=== PATIENT | female | born 1990 | race Caucasian/White ===

== ENCOUNTER 2016-05-23 12:26 | Emergency (ER) | payer OTHER ==
[2016-05-23 13:01] VITALS: BP 105/60
--- NOTE | 2016-05-23 13:35 | UC ---
UC Dental HPI - HPI Summary HPI Summary: left-sided TMJ symptoms really bothersome. Wants Naproxen to help. Has appt with ENT in 2 weeks. - History of Current Complaint Chief Complaint: UCGeneralIllness Stated Complaint: JAW PAIN Time Seen by Provider: 05/23/16 13:14 Hx Obtained From: Patient Hx Last Menstrual Period: 04/23/16 Onset/Duration: Gradual Onset, Lasting Weeks - months; worse in AM; grinds teeth at night Severity: Moderate Aggravating: Chewing Alleviating: Nothing Related History: TMJ Dysfunction - Allergies/Home Medications Allergies/Adverse Reactions: Allergies Allergy/AdvReac Type Severity Reaction Status Date / Time Penicillins Allergy Unknown Unknown Verified 05/23/16 13:01 Reaction Details PMH/Surg Hx/FS Hx/Imm Hx Endocrine History Of: Denies: Diabetes, Thyroid Disease Cardiovascular History Of: Denies: Cardiac Disorders, Hypertension, Pacemaker/ICD Respiratory History Of: Denies: COPD, Asthma GI/ History Of: Denies: Ulcer - Surgical History Surgical History: Yes Surgery Procedure, Year, and Place: ,T&A - Family History Known Family History: Positive: Respiratory Disease - asthma Negative: Diabetes - Social History Occupation: Employed Full-time Lives: With Family Alcohol Use: None Substance Use Type: None Smoking Status (MU): Former Smoker Type: Cigarettes Amount Used/How Often: 1/2 PPD Length of Time of Smoking/Using Tobacco: 9 Years Have You Smoked in the Last Year: Yes When Did the Patient Quit Smoking/Using Tobacco: 11/2015 - Immunization History Most Recent Influenza Vaccination: Not the Season Most Recent Tetanus Shot: unknown Review of Systems Constitutional: Negative Skin: Negative Eyes: Negative ENT: Dental Pain - left TMJ pain Respiratory: Negative Cardiovascular: Negative Gastrointestinal: Negative Genitourinary: Negative Motor: Negative Neurovascular: Negative Musculoskeletal: Negative Neurological: Negative Psychological: Negative All Other Systems Reviewed And Are Negative: Yes Physical Exam Triage Information Reviewed: Yes Appearance: Well-Appearing, No Pain Distress, Well-Nourished Vital Signs: Initial Vital Signs Temp 98.0 F 05/23/16 12:53 Pulse 71 05/23/16 12:53 Resp 16 05/23/16 12:53 BP 105/60 05/23/16 12:53 Pulse Ox 97 05/23/16 12:53 Eye Exam: Normal ENT Exam: Other - tenderness over left TMJ area. Full ROM of jaw. Teeth appear normal. Dental Exam: Normal Neck exam: Normal Neck: Positive: Supple, Nontender Respiratory Exam: Normal Cardiovascular Exam: Normal Musculoskeletal Exam: Normal Neurological Exam: Normal Psychological Exam: Normal Skin Exam: Normal Dental Complaint Course/Dx - Differential Dx/Diagnosis Differential Diagnosis/Dx: Odontogenic Pain, Peridontic Disease, TMJ Syndrome Provider Diagnoses: TMJ syndrome Discharge - Discharge Plan Condition: Stable Disposition: HOME Prescriptions: Naproxen [Naproxen 500 MG TABS] 500 mg PO BID PRN #60 tab PRN Reason: Pain busPIRone TAB* [Buspar *] 30 mg PO BEDTIME #30 tab Patient Education Materials: Temporomandibular Disorder (ED) Referrals: Colette Ko MD [Primary Care Provider] -
== END 2016-05-23 13:45 | disposition home or self-care (01) ==
LOC: UCCORT 12:26
DX: M26.609 Unspecified temporomandibular joint disorder, unspecified side (principal); Z88.0 Allergy status to penicillin; Z87.891 Personal history of nicotine dependence
CPT/HCPCS: 99212; G0463

== ENCOUNTER 2016-05-24 17:26 | Emergency (ER) | payer OTHER ==
[2016-05-24 17:44] VITALS: BP 106/71
--- NOTE | 2016-05-24 18:37 | UC ---
Dental HPI - HPI Summary HPI Summary: has tmj by history---has left lower jaw pain now has swelling in lower jaw and lower left back dental pain - History of Current Complaint Chief Complaint: UCUpperExtremity Stated Complaint: JAW PAIN Time Seen by Provider: 05/24/16 18:27 Hx Obtained From: Patient Hx Last Menstrual Period: 05/30/15 ?: No Onset/Duration: Gradual Onset, Lasting Days, Worse Since - today with pain and swelling Severity: Moderate Pain Intensity: 7 Pain Scale Used: 0-10 Numeric Alleviating: Nothing Related History: TMJ Dysfunction, Previous Dental Care on Same Tooth, Swelling - Allergies/Home Medications Allergies/Adverse Reactions: Allergies Allergy/AdvReac Type Severity Reaction Status Date / Time Penicillins Allergy Unknown Unknown Verified 05/24/16 17:43 Reaction Details Home Medications: Home Medications HYDROcodone/ACETAMIN 5-325 MG* [[place] 5-325 TAB*] 1 tab PO SEE INSTRUCTIONS PRN 05/24/16 [History Confirmed 05/24/16] PMH/Surg Hx/FS Hx/Imm Hx Previously Healthy: Yes Endocrine History Of: Denies: Diabetes, Thyroid Disease Cardiovascular History Of: Denies: Cardiac Disorders, Hypertension, Pacemaker/ICD Respiratory History Of: Denies: COPD, Asthma GI/ History Of: Denies: Ulcer - Surgical History Surgical History: Yes Surgery Procedure, Year, and Place: ,T&A - Family History Known Family History: Positive: Respiratory Disease - asthma Negative: Diabetes - Social History Occupation: Employed Full-time Lives: With Family Alcohol Use: None Substance Use Type: None Smoking Status (MU): Former Smoker Type: Cigarettes Amount Used/How Often: 1/2 PPD Length of Time of Smoking/Using Tobacco: 9 Years Have You Smoked in the Last Year: Yes When Did the Patient Quit Smoking/Using Tobacco: 11/2015 Cessation Counseling: Patient Advised to Stop - Immunization History Most Recent Influenza Vaccination: Not the Season Most Recent Tetanus Shot: unknown Review of Systems Constitutional: Negative Skin: Negative Eyes: Negative ENT: Dental Pain - left lower Respiratory: Negative Cardiovascular: Negative Gastrointestinal: Negative Genitourinary: Negative Motor: Negative Neurovascular: Negative Musculoskeletal: Negative Neurological: Negative Psychological: Negative All Other Systems Reviewed And Are Negative: Yes Physical Exam Triage Information Reviewed: Yes Appearance: Well-Appearing, Well-Nourished, Pain Distress Vital Signs: Initial Vital Signs Temp 98.5 F 05/24/16 17:38 Pulse 63 05/24/16 17:38 Resp 16 05/24/16 17:38 BP 106/71 05/24/16 17:38 Pulse Ox 100 05/24/16 17:38 Vital Signs Reviewed: Yes Eye Exam: Normal Eyes: Positive: Conjunctiva Clear ENT Exam: Normal ENT: Positive: Normal ENT inspection, Hearing grossly normal, TMs normal. Negative: Nasal congestion, Nasal drainage, Trismus, Muffled/hoarse voice Dental: Positive: Percussion Tenderness @, Gross Decay/Caries @ - left lower molars, Cervical Lymphadenopathy - left Neck exam: Normal Neck: Positive: Supple, Tenderness @, Enlarged Nodes @ - left anterior cervical and sub mental lymph Respiratory Exam: Normal Respiratory: Positive: Chest non-tender, Lungs clear, Normal breath sounds, No respiratory distress, No accessory muscle use Cardiovascular Exam: Normal Cardiovascular: Positive: RRR, No Murmur, Pulses Normal, Brisk Capillary Refill Musculoskeletal Exam: Normal Musculoskeletal: Positive: Strength Intact, ROM Intact, No Edema Neurological Exam: Normal Neurological: Positive: Alert, Muscle Tone Normal Psychological Exam: Normal Psychological: Positive: Normal Response To Family Skin Exam: Normal Dental Complaint Course/Dx - Course Course Of Treatment: continue pervious rx pain med, add clindamycin, follow with dentist as planned - Differential Dx/Diagnosis Differential Diagnosis/Dx: Dental Abscess, Dental Caries, Odontogenic Pain Provider Diagnoses: Left lower molar dental caries , TMJ by history Discharge - Discharge Plan Condition: Stable Disposition: HOME Prescriptions: Clindamycin Cap(NF) [Cleocin 300 mg Cap(NF)] 300 mg PO Q6H #40 cap Patient Education Materials: Dental Caries (ED), Toothache (ED) Referrals: Colette Ko MD [Primary Care Provider] - Additional Instructions: Follow with Dentist in 2 weeks as planned
== END 2016-05-24 18:46 | disposition home or self-care (01) ==
LOC: UCCORT 17:26
DX: K02.9 Dental caries, unspecified (principal); M26.609 Unspecified temporomandibular joint disorder, unspecified side; Z88.0 Allergy status to penicillin; Z87.891 Personal history of nicotine dependence
CPT/HCPCS: 99212; G0463

== ENCOUNTER 2016-07-16 10:19 | Emergency (ER) | payer OTHER ==
--- NOTE | 2016-07-16 10:48 | UC ---
Respiratory Complaint HPI - HPI Summary HPI Summary: BILATERAL EAR PAIN, SINUS CONGESTION FOR TWO DAYS. MILD COUGH. CHILLS ON AN OFF. - History of Current Complaint Chief Complaint: UCGeneralIllness Stated Complaint: SINUS,EAR PAIN Time Seen by Provider: 07/16/16 10:47 Hx Last Menstrual Period: DOES NOT HAVE REG PERIODS ON DEPO - Allergies/Home Medications Allergies/Adverse Reactions: Allergies Allergy/AdvReac Type Severity Reaction Status Date / Time Penicillins Allergy Unknown Unknown Verified 07/16/16 10:27 Reaction Details Home Medications: Home Medications Ibuprofen TAB* [Advil TAB*] 400 mg PO Q6H PRN 07/16/16 [History Confirmed ] PMH/Surg Hx/FS Hx/Imm Hx Previously Healthy: Yes Endocrine History Of: Denies: Diabetes, Thyroid Disease Cardiovascular History Of: Denies: Cardiac Disorders, Hypertension, Pacemaker/ICD Respiratory History Of: Denies: COPD, Asthma GI/ History Of: Denies: Ulcer - Surgical History Surgical History: Yes Surgery Procedure, Year, and Place: ,T&A - Family History Known Family History: Positive: Respiratory Disease - asthma Negative: Diabetes - Social History Alcohol Use: None Substance Use Type: None Smoking Status (MU): Former Smoker Type: Cigarettes Amount Used/How Often: 1/2 PPD Length of Time of Smoking/Using Tobacco: 9 Years Have You Smoked in the Last Year: Yes When Did the Patient Quit Smoking/Using Tobacco: 11/2015 - Immunization History Most Recent Influenza Vaccination: NO Most Recent Tetanus Shot: unknown Review of Systems Constitutional: Negative Skin: Negative Eyes: Negative ENT: Dental Pain - right lower molar frx., Ear Ache, Other - b/l sinus pain Respiratory: Negative Cardiovascular: Negative Gastrointestinal: Negative Genitourinary: Negative Motor: Negative Neurovascular: Negative Musculoskeletal: Negative Neurological: Negative Psychological: Negative All Other Systems Reviewed And Are Negative: Yes Physical Exam Triage Information Reviewed: Yes Appearance: Well-Nourished, Ill-Appearing Vital Signs: Initial Vital Signs Temp 98.2 F 07/16/16 10:29 Pulse 63 07/16/16 10:29 Resp 16 07/16/16 10:29 BP 120/76 07/16/16 10:29 Pulse Ox 100 07/16/16 10:29 Vital Signs Reviewed: Yes Eye Exam: Normal ENT: Positive: Hearing grossly normal, Pharyngeal erythema, Nasal drainage, TMs normal, Other: - external ears are not tender. TMs are completely nml b/l. rt > left maxillary tenderness. Negative: TM bulging, TM dull, TM red, Tonsillar swelling, Tonsillar exudate, Muffled/hoarse voice Dental: Positive: Dental Fracture @ - rt lower molar, no abscess or erythema. Respiratory Exam: Normal Respiratory: Positive: Lungs clear, Normal breath sounds, No respiratory distress, No accessory muscle use Cardiovascular Exam: Normal Cardiovascular: Positive: RRR, No Murmur, Pulses Normal, Brisk Capillary Refill Abdomen Description: Positive: Nontender, Soft Musculoskeletal Exam: Normal Neurological Exam: Normal Psychological Exam: Normal Skin Exam: Normal UC Diagnostic Evaluation - Laboratory O2 Sat by Pulse Oximetry: 100 Respiratory Course/Dx - Course Course Of Treatment: no ear infection. nasal steroid spray. - Differential Dx/Diagnosis Differential Diagnosis/HQI/PQRI: Sinusitis, Other - sinusitis Provider Diagnoses: sinusitis, eustachean tube dysfunction. right lower molar fracture Discharge - Discharge Plan Condition: Stable Disposition: HOME Prescriptions: Cefdinir [Cefdinir 300 MG CAP] 300 mg PO BID #20 cap Patient Education Materials: Sinusitis (ED) Referrals: Colette Ko MD [Primary Care Provider] - Additional Instructions: Take a probiotic every day while you are on the antibiotic. fluids and rest. tylenol max daily dose is 4 gms and ibuprofen is 2400mgs in 24 hrs. Make sure to get in with the dentist for the tooth fracture.
[2016-07-16 11:18] VITALS: BP 124/83
== END 2016-07-16 11:18 | disposition home or self-care (01) ==
LOC: UCCORT 10:19
DX: J32.9 Chronic sinusitis, unspecified (principal); H69.93 Unspecified Eustachian tube disorder, bilateral; K03.81 Cracked tooth; Z88.0 Allergy status to penicillin; Z87.891 Personal history of nicotine dependence
CPT/HCPCS: 99212; G0463

== ENCOUNTER 2016-10-21 15:35 | Emergency (ER) | payer OTHER ==
[2016-10-21 15:50] VITALS: BP 108/72
--- NOTE | 2016-10-21 16:22 | UC ---
Hand/Wrist HPI - HPI Summary HPI Summary: pt reports breaking up sticks for fire wood yesterday and hyperextending or abducting left thumb, with suden onset of pain, selling and decrease in ROM to left thumb. Pt c/o today of swelling, pain that radiates to left elbows and minimal ROM . - History Of Current Complaint Chief Complaint: UCUpperExtremity Stated Complaint: LEFT THUMB INJURY Time Seen by Provider: 10/21/16 16:04 Hx Obtained From: Patient Hx Last Menstrual Period: 10/14/16 ?: No Onset/Duration: Sudden Onset, Lasting Hours - 24 Severity Initially: Moderate Severity Currently: Moderate Character Of Pain: Dull, Aching Aggravating Factor(s): Movement Alleviating: Rest Associated Signs And Symptoms: Positive: Swelling, Bruising, Other - decreased ROM Related History: Dominant Hand Left - Risk Factors Compartment Syndrome Risk Factors: Pain - Allergies/Home Medications Allergies/Adverse Reactions: Allergies Allergy/AdvReac Type Severity Reaction Status Date / Time Penicillins Allergy Unknown Unknown Verified 10/21/16 15:45 Reaction Details PMH/Surg Hx/FS Hx/Imm Hx Previously Healthy: Yes - Surgical History Surgical History: Yes Surgery Procedure, Year, and Place: ,T&A - Family History Known Family History: Positive: Respiratory Disease - asthma Negative: Diabetes - Social History Alcohol Use: None Substance Use Type: None Smoking Status (MU): Heavy Every Day Tobacco Smoker Type: Cigarettes Amount Used/How Often: 1/2 PPD Length of Time of Smoking/Using Tobacco: 9 Years Have You Smoked in the Last Year: Yes When Did the Patient Quit Smoking/Using Tobacco: 11/2015 - Immunization History Most Recent Influenza Vaccination: Not the Season Most Recent Tetanus Shot: unknown Review of Systems Constitutional: Negative Skin: Bruising - left thumb Eyes: Negative ENT: Negative Respiratory: Negative Cardiovascular: Negative Gastrointestinal: Negative Genitourinary: Negative Motor: Decreased ROM - left htumb, Weakness - left thumb Neurovascular: Negative Musculoskeletal: Arthralgia, Decreased ROM - left thumb, Edema, Myalgia Neurological: Weakness - left thumb Psychological: Negative All Other Systems Reviewed And Are Negative: Yes Physical Exam Triage Information Reviewed: Yes Appearance: Well-Appearing Vital Signs: Initial Vital Signs Temp 99.3 F 10/21/16 15:46 Pulse 83 10/21/16 15:46 Resp 16 10/21/16 15:46 BP 108/72 10/21/16 15:46 Pulse Ox 99 10/21/16 15:46 Eye Exam: Normal ENT Exam: Normal Neck exam: Normal Respiratory Exam: Normal Respiratory: Positive: No respiratory distress Musculoskeletal Exam: Other Musculoskeletal: Positive: ROM Limited @ - left thumb, Edema @ - left thumb, Other: - bruising left thumb, pain left thumb and lateral left wrist Neurological Exam: Other - weakness Psychological Exam: Normal Skin Exam: Other - bruising base of thumb Hand/Wrist Course/Dx - Differential Dx/Diagnosis Differential Diagnosis/HQI/PQRI: Contusion, Dislocation, Fracture Provider Diagnoses: fracture. IMPRESSION: Possible nondisplaced fracture involving the palmar proximal corner of the. left thumb distal phalanx. Discharge - Discharge Plan Condition: Stable Disposition: HOME Patient Education Materials: Thumb Fracture (ED) Forms: *Work Release Referrals: Diann Oliver MD [Medical Doctor] - Colette Ko MD [Primary Care Provider] - Additional Instructions: X-Ray: IMPRESSION: Possible nondisplaced fracture involving the palmar proximal corner of the left thumb distal phalanx.
--- NOTE | 2016-10-21 16:37 | RAD ---
INDICATION: Hyperextension injury COMPARISON: None TECHNIQUE: 3 views of the left thumb were obtained. FINDINGS: On the lateral view of the thumb there is a faint cortical lucency at the palmar proximal corner of the left thumb distal phalanx. The remaining visualized bones are intact and appropriately aligned. IMPRESSION: Possible nondisplaced fracture involving the palmar proximal corner of the left thumb distal phalanx. If the patient's symptoms persist, follow-up imaging is recommended.
== END 2016-10-21 16:50 | disposition home or self-care (01) ==
LOC: UCCORT 15:35
DX: Z72.0 Tobacco use (principal); S69.92XA Unspecified injury of left wrist, hand and finger(s), initial encounter; X50.0XXA Overexertion from strenuous movement or load, initial encounter; Y93.89 Activity, other specified; Y92.9 Unspecified place or not applicable; Y99.9 Unspecified external cause status
CPT/HCPCS: 99212; G0463

== ENCOUNTER 2017-02-27 18:39 | Emergency (ER) | payer OTHER ==
[2017-02-27 18:57] VITALS: BP 124/80
--- NOTE | 2017-02-27 19:45 | UC ---
Skin Complaint HPI - HPI Summary HPI Summary: Left medial upper arm patch of skin that is pink, swollen and burning sensation. She had a similar skin issue on the right hip about 2weeks ago and she was diagnosed with possible lyme versus cellulites. She is currently on doxycycline. No other members of the household have the same symptoms. - History of Current Complaint Chief Complaint: UCSkin Time Seen by Provider: 02/27/17 19:26 Stated Complaint: LEFT ARM SWOLLEN Hx Obtained From: Patient Hx Last Menstrual Period: 02/07/17, on depo Onset/Duration: Gradual Onset, Lasting Hours Skin Exposure Onset/Duration: Hours Ago Timing: Constant Onset Severity: Moderate Current Severity: Moderate Location: Discrete - Left arm. Character: Swelling, Redness, Raised, Painful - burning. Aggravating Factor(s): Touch Alleviating Factor(s): Nothing Associated Signs & Symptoms: Positive: Tenderness. Negative: Fever, Chills - Allergy/Home Medications Allergies/Adverse Reactions: Allergies Allergy/AdvReac Type Severity Reaction Status Date / Time Penicillins Allergy Unknown Unknown Verified 02/27/17 18:57 Reaction Details Home Medications: Home Medications DOXYcycline CAP(*) [DOXYcycline 100MG CAP(*)] 100 mg PO BID 02/27/17 [History Confirmed 02/27/17] Review of Systems Skin: Other - patch of skin swelling. All Other Systems Reviewed And Are Negative: Yes PMH/Surg Hx/FS Hx/Imm Hx Previously Healthy: Yes - Surgical History Surgical History: Yes Surgery Procedure, Year, and Place: ,T&A - Family History Known Family History: Positive: Respiratory Disease - asthma Negative: Diabetes - Social History Alcohol Use: None Substance Use Type: None Smoking Status (MU): Heavy Every Day Tobacco Smoker Type: Cigarettes Amount Used/How Often: 1/2 PPD Length of Time of Smoking/Using Tobacco: 9 Years Have You Smoked in the Last Year: Yes When Did the Patient Quit Smoking/Using Tobacco: 11/2015 - Immunization History Most Recent Influenza Vaccination: Not the Season Most Recent Tetanus Shot: unknown Physical Exam Triage Information Reviewed: Yes Appearance: Well-Appearing, No Pain Distress, Well-Nourished Vital Signs: Initial Vital Signs Temp 98 F 02/27/17 18:52 Pulse 94 02/27/17 18:52 Resp 14 02/27/17 18:52 BP 124/80 02/27/17 18:52 Pulse Ox 98 02/27/17 18:52 Vital Signs Reviewed: Yes Eyes: Positive: Conjunctiva Clear ENT: Positive: Normal ENT inspection Neck exam: Normal Neck: Positive: Supple, Nontender, No Lymphadenopathy Respiratory Exam: Normal Respiratory: Positive: No respiratory distress, No accessory muscle use. Negative: Respiratory distress Cardiovascular: Positive: Brisk Capillary Refill Abdominal Exam: Normal Abdomen Description: Negative: Distended Musculoskeletal: Positive: Strength Intact, ROM Intact Neurological: Positive: Alert, Muscle Tone Normal. Negative: Fatigued Skin Exam: Other - discrete patch of pink warm skin medial upper arm without streaking. there is mild tenderness per the patient but no wincing or guarding. Course/Dx - Diagnoses Provider Diagnoses: insect bite Discharge - Discharge Plan Condition: Good Disposition: HOME Patient Education Materials: Insect Bite or Sting (ED) Referrals: Colette Ko MD [Primary Care Provider] - If Needed
== END 2017-02-27 19:43 | disposition home or self-care (01) ==
LOC: UCCORT 18:39
DX: S70.261A Insect bite (nonvenomous), right hip, initial encounter (principal); W57.XXXA Bitten or stung by nonvenomous insect and other nonvenomous arthropods, initial encounter; Y92.9 Unspecified place or not applicable; F17.210 Nicotine dependence, cigarettes, uncomplicated
CPT/HCPCS: 99211; G0463

== ENCOUNTER 2017-04-14 13:27 | Emergency (ER) | payer OTHER ==
[2017-04-14 13:49] VITALS: BP 115/81
--- NOTE | 2017-04-14 14:50 | UC ---
UC General HPI - HPI Summary HPI Summary: THREE DAYS OF NAUSEA & VOMITING AFTER EATING. NO ABDOMINAL PAIN. NO BACK PAIN. NO FEVER. NO COUGH CONGESTION, OR SORE THROAT. " I THINK I HAVE A STOMACH BUG.' NO CONSTIPATION OR DIARRHEA. - History of Current Complaint Chief Complaint: UCGI Stated Complaint: VOMITING Time Seen by Provider: 04/14/17 13:33 Hx Obtained From: Patient Hx Last Menstrual Period: unknown, depo shot Onset/Duration: Gradual Onset, Lasting Days, Still Present Onset Severity: Mild Current Severity: Mild Pain Intensity: 0 Associated Signs & Symptoms: Positive: Nausea, Vomiting. Negative: Abdominal Pain, Back Pain, Cough, Chest Pain, Dizziness, Diarrhea, Decreased Oral Intake, Edema, Fever, Headache, Hematemesis, Syncope - Allergy/Home Medications Allergies/Adverse Reactions: Allergies Allergy/AdvReac Type Severity Reaction Status Date / Time Penicillins Allergy Unknown Unknown Verified 04/14/17 13:48 Reaction Details PMH/Surg Hx/FS Hx/Imm Hx Previously Healthy: Yes - Surgical History Surgical History: Yes Surgery Procedure, Year, and Place: ,T&A - Family History Known Family History: Positive: Respiratory Disease - asthma Negative: Diabetes - Social History Occupation: Employed Full-time Lives: With Family Alcohol Use: None Substance Use Type: None Smoking Status (MU): Former Smoker Type: Cigarettes Amount Used/How Often: 1/2 PPD Length of Time of Smoking/Using Tobacco: 9 Years Have You Smoked in the Last Year: Yes When Did the Patient Quit Smoking/Using Tobacco: 11/2015 - Immunization History Most Recent Influenza Vaccination: Not the Season Most Recent Tetanus Shot: unknown Review of Systems Constitutional: Negative Skin: Negative Eyes: Negative ENT: Negative Respiratory: Negative Cardiovascular: Negative Gastrointestinal: Vomiting, Nausea Genitourinary: Negative Motor: Negative Neurovascular: Negative Musculoskeletal: Negative Neurological: Negative Psychological: Negative Is Patient Immunocompromised?: No All Other Systems Reviewed And Are Negative: Yes Physical Exam Triage Information Reviewed: Yes Appearance: Well-Appearing, No Pain Distress, Well-Nourished Vital Signs: Initial Vital Signs Temp 97.9 F 04/14/17 13:46 Pulse 96 04/14/17 13:46 Resp 16 04/14/17 13:46 BP 115/81 04/14/17 13:46 Pulse Ox 100 04/14/17 13:46 Vital Signs Reviewed: Yes Eye Exam: Normal Eyes: Positive: Conjunctiva Clear ENT Exam: Normal ENT: Positive: Normal ENT inspection, Hearing grossly normal, Pharynx normal Dental Exam: Normal Neck exam: Normal Neck: Positive: Supple, Nontender, No Lymphadenopathy Respiratory Exam: Normal Respiratory: Positive: Chest non-tender, Lungs clear, Normal breath sounds, No respiratory distress Cardiovascular Exam: Normal Cardiovascular: Positive: RRR, No Murmur, Pulses Normal Abdominal Exam: Normal Abdomen Description: Positive: Nontender, No Organomegaly, Soft Musculoskeletal Exam: Normal Neurological Exam: Normal Psychological Exam: Normal Skin Exam: Normal Course/Dx - Differential Dx - Multi-Symptom Differential Diagnoses: Metabolic Abnormality Provider Diagnoses: GASTRITIS Discharge - Discharge Plan Condition: Stable Disposition: HOME Prescriptions: Ondansetron ODT TAB* [Zofran 4 MG Odt TAB*] 4 mg PO Q8H PRN #12 tab.odt PRN Reason: Vomiting Patient Education Materials: Acute Nausea and Vomiting (ED) Forms: *Work Release Referrals: Colette Ko MD [Primary Care Provider] -
== END 2017-04-14 14:14 | disposition home or self-care (01) ==
LOC: UCCORT 13:27
DX: K29.70 Gastritis, unspecified, without bleeding (principal); Z32.02 Encounter for pregnancy test, result negative; Z88.0 Allergy status to penicillin; Z87.891 Personal history of nicotine dependence
CPT/HCPCS: 81003; 84702; 99212; G0463

== ENCOUNTER 2018-03-02 14:28 | Emergency (ER) | payer OTHER ==
[2018-03-02 15:03] VITALS: BP 128/82
--- NOTE | 2018-03-02 15:20 | UC ---
Throat Pain/Nasal Tay HPI - HPI Summary HPI Summary: C/O plugged ear yesterday. Cough with post nasal drip. C/O sinus pain. Feels feverish - History of Current Complaint Chief Complaint: UCGeneralIllness Stated Complaint: SINUS COMPLAINT Time Seen by Provider: 03/02/18 15:13 Hx Last Menstrual Period: 02/10/18 ?: No Onset/Duration: Sudden Onset, Lasting Days - 1, Worse Since - today Severity: Moderate Pain Intensity: 7 Cough: Nonproductive Associated Signs & Symptoms: Positive: Hoarseness, Sinus Discomfort, Nasal Discharge, Fever - Allergies/Home Medications Allergies/Adverse Reactions: Allergies Allergy/AdvReac Type Severity Reaction Status Date / Time Penicillins Allergy Hives Verified 03/02/18 15:01 PMH/Surg Hx/FS Hx/Imm Hx Previously Healthy: Yes - Surgical History Surgical History: Yes Surgery Procedure, Year, and Place: ,T&A - Family History Known Family History: Positive: Respiratory Disease - asthma Negative: Cardiac Disease, Hypertension, Diabetes - Social History Occupation: Employed Full-time Lives: With Family Alcohol Use: None Substance Use Type: None Smoking Status (MU): Former Smoker Type: Cigarettes Amount Used/How Often: 1/2 PPD Length of Time of Smoking/Using Tobacco: 9 Years Have You Smoked in the Last Year: Yes When Did the Patient Quit Smoking/Using Tobacco: 11/2015 - Immunization History Most Recent Influenza Vaccination: Not the Season Most Recent Tetanus Shot: unknown Review of Systems Constitutional: Fever ENT: Sore Throat, Nasal Discharge, Sinus Pain/Tenderness Respiratory: Cough Is Patient Immunocompromised?: No All Other Systems Reviewed And Are Negative: Yes Physical Exam Triage Information Reviewed: Yes Appearance: No Pain Distress, Well-Nourished, Ill-Appearing Vital Signs: Initial Vital Signs Temp 97.9 F 03/02/18 14:58 Pulse 76 03/02/18 14:58 Resp 16 03/02/18 14:58 BP 128/82 03/02/18 14:58 Pulse Ox 99 03/02/18 14:58 Vital Signs Reviewed: Yes Eyes: Positive: Conjunctiva Clear ENT: Positive: Pharynx normal, Nasal congestion, TMs normal - but retracted. Neck exam: Normal Respiratory Exam: Normal Cardiovascular Exam: Normal Musculoskeletal Exam: Normal Neurological Exam: Normal Psychological Exam: Normal Skin Exam: Normal Throat Pain/Nasal Course/Dx - Differential Dx/Diagnosis Differential Diagnosis/HQI/PQRI: Otitis Media, Pharyngitis, Sinusitis, URI Provider Diagnoses: Acute URI. Acute sinusitis Discharge - Sign-Out/Discharge Documenting (check all that apply): Patient Departure All imaging exams completed and their final reports reviewed: No Studies - Discharge Plan Condition: Stable Disposition: HOME Prescriptions: DOXYcycline CAP(*) [DOXYcycline 100MG CAP(*)] 100 mg PO BID #20 cap Patient Education Materials: Sinusitis (ED), Doxycycline (By mouth), Upper Respiratory Infection (ED) Referrals: Jaqueline Campbell [Primary Care Provider] - Additional Instructions: NASAL SPRAYS AND DROPS: Afrin in the PUMP/ MIST bottle (Get generic 12 hours nasal decongestant spray). Tilt your head down and look at the floor while doing a strong sniff with the spray. Decongestant nasal sprays and drops often give dramatic relief from congestion. They are often recommended for patients with sinus infection to assist with sinus drainage. Persons with high blood pressure should consult the doctor before using these nasal sprays. Afrin and Parth-Synephrine are common vuyx-kuh-jhjmich preparations. They should not be used for more than five days, as "rebound" congestion can occur - - the congestion flares as the drug wears off. A way of dealing with this rebound congestion problem is to medicate only one nostril each time, allowing the other nostril to recover from the medicine' s effects. When you no longer need the drug during the day, spray only one nostril each night. This helps you sleep well without severe rebound congestion. Call the doctor if you develop severe headache, palpitations, or chest pain. NEILMED SINUS RINSE: CHECK OUT AT [facility] Might be helpful if you continue to have sinus congestion in a few days. Saline nasal wash helps with mucous, allergies and congestion. It can be used up to twice a day or only as needed. Use lukewarm tap water. It does not have to be sterilized or distilled water. Do 1/3 on each side and snort out of both nostrils. Repeat the process with 1/6 of the bottle on each side with snorting in between to finish the solution in the bottle - Billing Disposition and Condition Condition: STABLE Disposition: Home
== END 2018-03-02 15:34 | disposition home or self-care (01) ==
LOC: UCCORT 14:28
DX: J06.9 Acute upper respiratory infection, unspecified (principal); J32.9 Chronic sinusitis, unspecified; Z88.0 Allergy status to penicillin; Z87.891 Personal history of nicotine dependence
CPT/HCPCS: 99212; G0463

== ENCOUNTER 2018-04-28 14:24 | Emergency (ER) | payer OTHER ==
[2018-04-28 15:48] VITALS: BP 122/80
--- NOTE | 2018-04-28 16:17 | UC ---
Dental HPI - HPI Summary HPI Summary: PATIENT WAS AT THE DENTIST 5 DAYS AGO WHERE SHE HAD A CLEANING AND HAD A FILLING PLACED TO HER RIGHT UPPER SECOND PREMOLAR. SINCE THEN SHE HAS HAD DISCOMFORT AT THAT TOOTH WHICH SHE FEELS IS GETTING WORSE. NO FEVER, NAUSEA/ VOMITING. ALSO REPORTS SHE HAS BEEN FEELING OVERWHELMINGLY ANXIOUS RECENTLY AND HAS BEEN UNABLE TO "MAKE IT GO AWAY". IN THE PAST HAS TAKEN LORAZEPAM NEEDED TO HELP WITH THESE SX. HAS BEEN DOING WELL PAST FEW YEARS BUT STATES THAT SHE HAS A LOT OF STRESS IN HER LIFE RIGHT NOW. NO SI/HI. - History of Current Complaint Chief Complaint: UCDentalProblem Stated Complaint: ORAL COMPLAINT Time Seen by Provider: 04/28/18 15:43 Hx Obtained From: Patient Hx Last Menstrual Period: 02/10/18 Onset/Duration: Gradual Onset, Lasting Days, Still Present Severity: Moderate Pain Intensity: 5 Pain Scale Used: 0-10 Numeric Aggravating Factor(s): Heat, Cold, Chewing Alleviating Factor(s): OTC Meds - ibuprofen - Allergies/Home Medications Allergies/Adverse Reactions: Allergies Allergy/AdvReac Type Severity Reaction Status Date / Time Penicillins Allergy Hives Verified 04/28/18 15:44 ALL CILLINS Allergy Hives Uncoded 04/28/18 15:44 Home Medications: Home Medications Ibuprofen TAB* [Advil TAB*] 600 mg PO Q6H PRN 04/28/18 [History Confirmed ] PMH/Surg Hx/FS Hx/Imm Hx Psychological History: Anxiety - Surgical History Surgical History: Yes Surgery Procedure, Year, and Place: ,T&A - Family History Known Family History: Positive: Respiratory Disease - asthma Negative: Cardiac Disease, Hypertension, Diabetes - Social History Alcohol Use: Rare Substance Use Type: None Smoking Status (MU): Former Smoker Type: Cigarettes Amount Used/How Often: 1/2 PPD Length of Time of Smoking/Using Tobacco: 9 Years Have You Smoked in the Last Year: Yes When Did the Patient Quit Smoking/Using Tobacco: 11/2015 - Immunization History Most Recent Influenza Vaccination: Not the Season Most Recent Tetanus Shot: unknown Review of Systems All Other Systems Reviewed And Are Negative: Yes Constitutional: Positive: Negative ENT: Positive: Dental Pain Respiratory: Positive: Negative Cardiovascular: Positive: Negative Gastrointestinal: Positive: Negative Psychological: Positive: Anxious Physical Exam Triage Information Reviewed: Yes Appearance: Well-Nourished, Pain Distress - mild, Other: - pt anxious, tearful Vital Signs: Initial Vital Signs Temp 98.6 F 04/28/18 15:44 Pulse 69 04/28/18 15:44 Resp 15 04/28/18 15:44 BP 122/80 04/28/18 15:44 Pulse Ox 100 04/28/18 15:44 Vital Signs Reviewed: Yes Eyes: Positive: Conjunctiva Clear ENT: Positive: Hearing grossly normal, Pharynx normal, TMs normal Dental: Positive: Percussion Tenderness @ - RIGHT UPPER 2ND PREMOLAR - METAL FILLING IN PLACE Neck: Positive: Supple, Nontender, No Lymphadenopathy Respiratory: Positive: No respiratory distress, No accessory muscle use Cardiovascular: Positive: Pulses Normal Abdomen Description: Positive: Soft Musculoskeletal: Positive: No Edema Neurological: Positive: Alert Psychological: Positive: Age Appropriate Behavior, Other: - PT IS TEARFUL AND ANXIOUS Skin: Negative: Rashes Dental Complaint Course/Dx - Differential Dx/Diagnosis Provider Diagnosis: Pain, dental, Anxiety Discharge - Sign-Out/Discharge Documenting (check all that apply): Patient Departure All imaging exams completed and their final reports reviewed: No Studies - Discharge Plan Condition: Stable Disposition: HOME Prescriptions: Chlorhexidine MW 0.12% 473ML* [Peridex Mouth Wash 0.12%*] 15 ml SWISH SPIT BID # 1 bottle LORazepam [Lorazepam] 1 - 2 tab PO BID PRN #6 tablet MDD 2 PRN Reason: Anxiety Patient Education Materials: Toothache (ED), Anxiety (ED) Referrals: Jaqueline Campbell [Primary Care Provider] - If Needed Additional Instructions: NO SIGN OF TOOTH INFECTION ON EXAM TODAY. YOUR NERVE ROOT AND/OR YOUR GUMS MAY HAVE BEEN IRRITATED DURING YOUR CLEANING AND FILLING PLACEMENT ON SATURDAY. USE THE PERIDEX MOUTH RINSE TWICE DAILY. RINSE YOUR MOUTH OUT WITH WATER AFTER EATING OR DRINKING ANYTHING. FOLLOW-UP WITH YOUR DENTIST SOON THEY REOPEN AFTER THE HOLIDAYS. IBUPROFEN NEEDED FOR DISCOMFORT. WILL GIVE YOU A FEW ATIVAN FOR YOU TO USE TO HELP BREAK YOUR ANXIETY CYCLE SINCE YOU TOLERATED THIS MEDICINE WELL IN THE PAST. PLEASE NOTE THAT THIS IS NOT A GOOD CHOICE FOR CHRONIC MANAGEMENT OF YOUR ANXIETY. FOLLOW-UP WITH [facility] TO FURTHER DISCUSS TREATMENT OPTIONS FOR YOUR ANXIETY. - Billing Disposition and Condition Condition: STABLE Disposition: Home
== END 2018-04-28 16:18 | disposition home or self-care (01) ==
LOC: UCCORT 14:24
DX: K08.89 Other specified disorders of teeth and supporting structures (principal); F41.9 Anxiety disorder, unspecified; Z88.0 Allergy status to penicillin; Z87.891 Personal history of nicotine dependence
CPT/HCPCS: 99212; G0463

== ENCOUNTER 2018-05-24 11:09 | Emergency (ER) | payer OTHER ==
[2018-05-24 12:00] VITALS: BP 125/78
--- NOTE | 2018-05-24 12:42 | UC ---
Neck Pain HPI - HPI Summary HPI Summary: Pt c/o of left side neck pain and stiffness. Pt states that she had a fever yesterday of 101, felt better, then went to bed at usual time at night and woke thismroning with left side neck pain and stiffness. Denies fever this morning. - History of Current Complaint Chief Complaint: UCBackPain Stated Complaint: NECK PAIN/STIFF Time Seen by Provider: 05/24/18 12:29 Hx Obtained From: Patient Hx Last Menstrual Period: 05/04/18 ?: No Onset/Duration Of Injury/Symptoms: Hours Mechanism Of Injury: No Known Trauma Timing: Constant Onset/Duration: Sudden Onset, Lasting Hours Severity: Severe Pain Intensity: 9 Location: Discrete At: - left side of neck Character: Aching, Stiff, Spasmotic, Burning Aggravating Factors: Movement Alleviating Factors: Nothing Associated Signs & Symptoms: Positive: Negative - Risk Factors Meningitis Risk Factors: Negative - Allergies/Home Medications Allergies/Adverse Reactions: Allergies Allergy/AdvReac Type Severity Reaction Status Date / Time Penicillins Allergy Hives Verified 05/24/18 11:57 ALL CILLINS Allergy Hives Uncoded 05/24/18 11:57 PMH/Surg Hx/FS Hx/Imm Hx - Additional Past Medical History Additional PMH: Pt had spinal meningitis as child. Previously Healthy: Yes - Surgical History Surgical History: Yes Surgery Procedure, Year, and Place: ,T&A - Family History Known Family History: Positive: Respiratory Disease - asthma Negative: Cardiac Disease, Hypertension, Diabetes - Social History Occupation: Employed Full-time Lives: With Family Alcohol Use: Rare Substance Use Type: None Smoking Status (MU): Former Smoker Type: Cigarettes Amount Used/How Often: 1/2 PPD Length of Time of Smoking/Using Tobacco: 9 Years Have You Smoked in the Last Year: No When Did the Patient Quit Smoking/Using Tobacco: 11/2015 - Immunization History Most Recent Influenza Vaccination: Not the Season Most Recent Tetanus Shot: unknown Review Of Systems Constitutional: Positive: Fever Skin: Positive: Negative Eyes: Positive: Negative ENT: Positive: Negative Respiratory: Positive: Negative Cardiovascular: Positive: Negative Gastrointestinal: Positive: Negative Genitourinary: Positive: Negative Musculoskeletal: Positive: Myalgia Neurological: Positive: Headache Psychological: Positive: Negative All Other Systems Reviewed And Are Negative: No Physical Exam Triage Information Reviewed: Yes Appearance: Pain Distress Vital Signs: Initial Vital Signs Temp 98.1 F 05/24/18 11:56 Pulse 66 05/24/18 11:56 Resp 17 05/24/18 11:56 BP 125/78 05/24/18 11:56 Pulse Ox 100 05/24/18 11:56 Vital Signs Reviewed: Yes Eye Exam: Normal ENT Exam: Normal ENT: Positive: Hearing grossly normal Dental Exam: Normal Neck: Positive: Other: - along superior border of trapezius left side stiffness, Respiratory Exam: Normal Cardiovascular Exam: Normal Musculoskeletal: Positive: ROM Limited @ - neck, left side stiffness Neurological Exam: Normal Psychological Exam: Normal Skin Exam: Normal Neck Pain Course/Dx - Differential Dx/Diagnosis Differential Dx/HQI/PQRI: Meningitis, Sprain, Strain, Torticollis Provider Diagnosis: Torticollis, acute Discharge - Sign-Out/Discharge Documenting (check all that apply): Patient Departure All imaging exams completed and their final reports reviewed: No Studies - Discharge Plan Condition: Stable Disposition: HOME Prescriptions: Cyclobenzaprine TAB* [Flexeril 10 MG TAB*] 10 mg PO Q8H PRN #15 tab PRN Reason: Pain predniSONE TAB* [Deltasone 20 MG TAB*] 20 mg PO DAILY #4 tab Patient Education Materials: Spasmodic Torticollis (ED) Referrals: Jaqueline Campbell [Primary Care Provider] - If Needed - Billing Disposition and Condition Condition: STABLE Disposition: Home
== END 2018-05-24 12:53 | disposition home or self-care (01) ==
LOC: UCCORT 11:09
DX: M43.6 Torticollis (principal); Z88.0 Allergy status to penicillin
CPT/HCPCS: 99212; G0463

== ENCOUNTER 2019-02-05 08:09 | Emergency (ER) | payer OTHER ==
[2019-02-05 08:48] VITALS: BP 119/87
--- NOTE | 2019-02-05 09:24 | UC ---
Skin Complaint HPI - HPI Summary HPI Summary: painful sore on her left lower lip x 1 day woke up with the sore. no hx of cold sores, ? bug bite no fever , no chill - History of Current Complaint Chief Complaint: UCSkin Time Seen by Provider: 02/05/19 08:50 Stated Complaint: LIP-SKIN Hx Obtained From: Patient Hx Last Menstrual Period: none ?: No Onset/Duration: Gradual Onset, Lasting Days - 1, Still Present Timing: Constant Onset Severity: Moderate Current Severity: Moderate Pain Intensity: 7 Pain Scale Used: 0-10 Numeric Location: Discrete - left lower lip Character: Swelling, Pain, Redness, Raised, Painful Aggravating Factor(s): Touch Alleviating Factor(s): Nothing Associated Signs & Symptoms: Positive: Tenderness. Negative: Fever, Chills - Allergy/Home Medications Allergies/Adverse Reactions: Allergies Allergy/AdvReac Type Severity Reaction Status Date / Time Penicillins Allergy Hives Verified 02/05/19 08:48 ALL CILLINS Allergy Hives Uncoded 02/05/19 08:48 PMH/Surg Hx/FS Hx/Imm Hx Previously Healthy: Yes - Surgical History Surgical History: Yes Surgery Procedure, Year, and Place: ,T&A - Family History Known Family History: Positive: Hypertension, Diabetes, Respiratory Disease - asthma Negative: Cardiac Disease - Social History Alcohol Use: Occasionally Substance Use Type: None Smoking Status (MU): Former Smoker Type: Cigarettes Amount Used/How Often: 3 cigs per day Length of Time of Smoking/Using Tobacco: 6 Years Have You Smoked in the Last Year: No When Did the Patient Quit Smoking/Using Tobacco: 11/2015 - Immunization History Most Recent Influenza Vaccination: Not the Season Most Recent Tetanus Shot: unknown Review of Systems All Other Systems Reviewed And Are Negative: Yes Constitutional: Positive: Negative Eyes: Positive: Negative ENT: Positive: Negative Respiratory: Positive: Negative Is Patient Immunocompromised?: No Physical Exam Triage Information Reviewed: Yes Appearance: Well-Appearing, No Pain Distress, Well-Nourished Vital Signs: Initial Vital Signs Temp 97.5 F 02/05/19 08:45 Pulse 79 02/05/19 08:45 Resp 18 02/05/19 08:45 BP 119/87 02/05/19 08:45 Pulse Ox 100 02/05/19 08:45 Vital Signs Reviewed: Yes Eye Exam: Normal Eyes: Positive: Conjunctiva Clear ENT: Positive: Normal ENT inspection, Hearing grossly normal, Pharynx normal Neck: Positive: Supple, Nontender, No Lymphadenopathy Respiratory: Positive: Chest non-tender, Lungs clear, Normal breath sounds Cardiovascular: Positive: RRR, No Murmur, Pulses Normal Skin: Positive: Other - pustular lesion left lower lip , + swellen, erythema, tender to touch Course/Dx - Diagnoses Provider Diagnosis: Cold sore Discharge ED - Sign-Out/Discharge Documenting (check all that apply): Patient Departure All imaging exams completed and their final reports reviewed: No Studies - Discharge Plan Condition: Stable Disposition: HOME Prescriptions: ValACYclovir (*) [Valtrex 500 mg (*)] 500 mg PO BID #6 tab Patient Education Materials: Oral Herpes Simplex Virus Infections (ED) Forms: *Work Release Referrals: Jaqueline Campbell [Primary Care Provider] - If Needed - Billing Disposition and Condition Condition: STABLE Disposition: Home
[2019-02-07 23:30] LABS: Herpes Source LEFT LOWER LIP
--- NOTE | 2019-02-08 12:44 | UC ---
- Progress Note Progress Note: Viral culture from the lower lip reviewed today: Negative for hsv1 and HSV 2. She has already been treated with Valtrex.. Please inform patient said her test for herpes was negative. If her lesion is still present she should get it rechecked Course/Dx - Diagnoses Provider Diagnoses: Cold sore Discharge ED - Sign-Out/Discharge Documenting (check all that apply): Post-Discharge Follow Up All imaging exams completed and their final reports reviewed: No Studies - Discharge Plan Condition: Stable Disposition: HOME Prescriptions: ValACYclovir (*) [Valtrex 500 mg (*)] 500 mg PO BID #6 tab Patient Education Materials: Oral Herpes Simplex Virus Infections (ED) Forms: *Work Release Referrals: Jaqueline Campbell [Primary Care Provider] - If Needed - Billing Disposition and Condition Condition: STABLE Disposition: Home
== END 2019-02-05 09:10 | disposition home or self-care (01) ==
LOC: UCCORT 08:09
DX: L98.8 Other specified disorders of the skin and subcutaneous tissue (principal); Z88.0 Allergy status to penicillin; Z87.891 Personal history of nicotine dependence
CPT/HCPCS: 87529; 99212; G0463

== ENCOUNTER 2019-02-21 15:01 | Emergency (ER) | payer OTHER ==
[2019-02-21 15:15] VITALS: BP 106/62
--- NOTE | 2019-02-21 15:28 | UC ---
Throat Pain/Nasal Tay HPI - HPI Summary HPI Summary: 28-year-old woman comes in with a chief complaint of one week of upper respiratory tract infection symptoms. She's been having runny nose. Now she has sinus pressure. She has rhinorrhea. No complaint of any shortness of breath or wheezing. She has been using some egda-ish-clwxyix medications to help some with the symptoms. She says when she has facial pressure like this she feels like she has a sinus infection. - History of Current Complaint Chief Complaint: UCRespiratory Stated Complaint: SINUS COMPLAINT Time Seen by Provider: 02/21/19 15:06 Hx Last Menstrual Period: DOES NOT HAVE REG PERIODS, USES DEPO Pain Intensity: 6 - Allergies/Home Medications Allergies/Adverse Reactions: Allergies Allergy/AdvReac Type Severity Reaction Status Date / Time Penicillins Allergy Hives Verified 02/21/19 15:07 ALL CILLINS Allergy Hives Uncoded 02/21/19 15:07 PMH/Surg Hx/FS Hx/Imm Hx Previously Healthy: Yes - Surgical History Surgical History: Yes Surgery Procedure, Year, and Place: ,T&A - Family History Known Family History: Positive: Hypertension, Diabetes, Respiratory Disease - asthma Negative: Cardiac Disease - Social History Alcohol Use: Occasionally Substance Use Type: None Smoking Status (MU): Former Smoker Type: Cigarettes Amount Used/How Often: 3 cigs per day Length of Time of Smoking/Using Tobacco: 6 Years Have You Smoked in the Last Year: No When Did the Patient Quit Smoking/Using Tobacco: 11/2015 - Immunization History Most Recent Influenza Vaccination: Not the Season Most Recent Tetanus Shot: unknown Review of Systems All Other Systems Reviewed And Are Negative: Yes Constitutional: Positive: Negative Skin: Positive: Negative Eyes: Positive: Negative ENT: Positive: Sore Throat, Ear Ache, Nasal Discharge, Sinus Congestion, Sinus Pain/Tenderness Respiratory: Positive: Negative Cardiovascular: Positive: Negative Gastrointestinal: Positive: Negative Motor: Positive: Negative Neurovascular: Positive: Negative Musculoskeletal: Positive: Negative Neurological: Positive: Negative Psychological: Positive: Negative Is Patient Immunocompromised?: No Physical Exam Triage Information Reviewed: Yes Appearance: No Pain Distress, Well-Nourished, Ill-Appearing - mild Vital Signs: Initial Vital Signs Temp 97.6 F 02/21/19 15:09 Pulse 64 02/21/19 15:09 Resp 16 02/21/19 15:09 BP 106/62 02/21/19 15:09 Pulse Ox 99 02/21/19 15:09 Vital Signs Reviewed: Yes Eye Exam: Normal Eyes: Positive: Conjunctiva Clear ENT: Positive: Pharyngeal erythema, Nasal congestion, Nasal drainage, TMs normal Neck: Positive: Supple Respiratory: Positive: Lungs clear, Normal breath sounds, No respiratory distress Cardiovascular: Positive: RRR Musculoskeletal: Positive: Strength Intact, ROM Intact Neurological: Positive: Alert, Muscle Tone Normal Psychological: Positive: Age Appropriate Behavior Skin Exam: Normal Throat Pain/Nasal Course/Dx - Course Course Of Treatment: DISCUSSED VIRAL VERSES BACTERIAL INFECTIONS AND THE ROLE OF ANTIBIOTICS. THE PATIENT PREFERS TO BE ON ANTIBIOTICS AT THIS TIME. - Differential Dx/Diagnosis Provider Diagnosis: Sinusitis Discharge ED - Sign-Out/Discharge Documenting (check all that apply): Patient Departure All imaging exams completed and their final reports reviewed: No Studies - Discharge Plan Condition: Stable Disposition: HOME Prescriptions: Azithromyxin MARTI (NF) [Z-Marti (Zithromax) 250 mg tabs #6] 2 tab PO .TODAY, THEN 1 DAILY #6 tab Fluticasone NASAL SPRAY 50MCG* [Flonase NASAL SPRAY 50MCG*] 2 spray BOTH NARES DAILY #1 btl Patient Education Materials: Sinusitis (ED) Referrals: Jaqueline Campbell [Primary Care Provider] - Additional Instructions: FOLLOW UP WITH YOUR DOCTOR IF NOT COMPLETELY IMPROVED. GET REEVALUATED SOONER IF NOT IMPROVING OR YOUR CONDITION WORSENS OR ANY QUESTIONS OR CONCERNS. - Billing Disposition and Condition Condition: STABLE Disposition: Home
== END 2019-02-21 15:34 | disposition home or self-care (01) ==
LOC: UCCORT 15:01
DX: J32.9 Chronic sinusitis, unspecified (principal); Z88.0 Allergy status to penicillin; Z87.891 Personal history of nicotine dependence
CPT/HCPCS: 99212; G0463

== ENCOUNTER 2019-04-27 13:33 | Emergency (ER) | payer OTHER ==
[2019-04-27 13:50] VITALS: BP 114/82
--- NOTE | 2019-04-27 14:10 | UC ---
FLU HPI - HPI Summary HPI Summary: 28-year-old female presents with 3 day history of fever, chills, general malaise , body aches, sneezing, nasal congestion, runny nose, sore throat, and a dry nonproductive cough. She has not received her flu shot this year. Her son has been sick for the past 6 days with similar symptoms. Denies ear pain, dysphagia , chest pain, shortness of breath, abdominal pain, nausea, vomiting, or diarrhea. - History of Current Complaint Chief Complaint: UCGeneralIllness Stated Complaint: COUGH,ST,RUNNY NOSE,FEVER Time Seen by Provider: 04/27/19 13:42 Hx Obtained From: Patient Hx Last Menstrual Period: 03/30/19 Pain Intensity: 0 - Allergy/Home Medications Allergies/Adverse Reactions: Allergies Allergy/AdvReac Type Severity Reaction Status Date / Time Penicillins Allergy Hives Verified 04/27/19 13:47 ALL CILLINS Allergy Hives Uncoded 04/27/19 13:47 PMH/Surg Hx/FS Hx/Imm Hx Previously Healthy: Yes - Denies significant PMH - Surgical History Surgical History: Yes Surgery Procedure, Year, and Place: ,T&A - Family History Known Family History: Positive: Hypertension, Diabetes, Respiratory Disease - asthma Negative: Cardiac Disease - Social History Occupation: Employed Full-time Lives: With Family Alcohol Use: Occasionally Substance Use Type: None Smoking Status (MU): Former Smoker Type: Cigarettes Amount Used/How Often: 3 cigs per day Length of Time of Smoking/Using Tobacco: 6 Years Have You Smoked in the Last Year: No When Did the Patient Quit Smoking/Using Tobacco: 11/2015 - Immunization History Most Recent Influenza Vaccination: Not the 2014/2015 Season Most Recent Tetanus Shot: unknown Review of Systems All Other Systems Reviewed And Are Negative: Yes Constitutional: Positive: Fever, Chills, Fatigue Eyes: Negative: Drainage, Eye Redness ENT: Positive: Sore Throat, Nasal Discharge, Sinus Congestion. Negative: Ear Ache Respiratory: Positive: Cough. Negative: Shortness Of Breath Cardiovascular: Negative: Palpitations, Chest Pain Gastrointestinal: Negative: Abdominal Pain, Vomiting, Diarrhea, Nausea Genitourinary: Positive: Negative Musculoskeletal: Positive: Myalgia Neurological: Positive: Negative Is Patient Immunocompromised?: No Physical Exam - Summary Physical Exam Summary: GENERAL APPEARANCE: Well developed, well nourished, alert and cooperative, and appears to be in no acute distress. EYES: Conjunctiva clear. No drainage. EARS: External auditory canals and tympanic membranes clear, hearing grossly intact. NOSE: Moderate nasal congestion. No nasal discharge. THROAT: Pharyngeal erythema. No tonsilar inflammation, swelling, exudate, or lesions. Uvula midline. NECK: Neck supple, non-tender without lymphadenopathy. CARDIAC: Normal S1 and S2. No S3, S4 or murmurs. Rhythm is regular. There is no peripheral edema, cyanosis or pallor. Extremities are warm and well perfused. Capillary refill is less than 2 seconds. Peripheral pulses intact. LUNGS: Clear to auscultation without rales, rhonchi, wheezing or diminished breath sounds. Dry nonproductive cough. ABDOMEN: Positive bowel sounds. Soft, nondistended, nontender. No guarding or rebound. No masses or hepatosplenomegally. MUSKULOSKELETAL: ROM intact to all extremities. No joint erythema or tenderness. Normal muscular development. Normal gait. SKIN: Skin normal color, texture and turgor with no lesions or eruptions. Triage Information Reviewed: Yes Vital Signs: Initial Vital Signs Temp 98.2 F 04/27/19 13:47 Pulse 68 04/27/19 13:47 Resp 15 04/27/19 13:47 BP 114/82 04/27/19 13:47 Pulse Ox 100 04/27/19 13:47 Vital Signs Reviewed: Yes Flu Course/Dx - Course Course Of Treatment: 28-year-old female presents with 3 day history of fever, chills, general malaise , body aches, sneezing, nasal congestion, runny nose, sore throat, and a dry nonproductive cough. She has not received her flu shot this year. Her son has been sick for the past 6 days with similar symptoms. Denies ear pain, dysphagia , chest pain, shortness of breath, abdominal pain, nausea, vomiting, or diarrhea. Afebrile. Vital signs stable. Patient had moderate nasal congestion , normal TMs, pharyngeal erythema without tonsillar swelling or exudate, no cervical lymphadenopathy, clear bilateral breath sounds, dry nonproductive cough , and otherwise unremarkable exam. Rapid flu test was positive for influenza B. Reviewed results with the patient. We discussed that considering the duration of her symptoms she is outside the window for treating with Tamiflu at this time. Recommending symptomatic treatment. She is to follow-up with her primary care provider in 5-7 days if symptoms are not improving. Anticipatory guidance warning symptoms reviewed with the patient. Verbalizes understanding and agrees with plan of care. - Differential Dx/Diagnosis Differential Diagnosis/HQI/PQRI: Bronchitis, Influenza, Pneumonia, Upper Respiratory Infection Provider Diagnosis: Influenza B Discharge ED - Sign-Out/Discharge Documenting (check all that apply): Patient Departure All imaging exams completed and their final reports reviewed: No Studies - Discharge Plan Condition: Stable Disposition: HOME Prescriptions: Benzonatate CAP* [Tessalon 100 MG CAP*] 100 mg PO TID PRN #21 cap PRN Reason: Cough Patient Education Materials: Influenza (ED) Referrals: Jaqueline Campbell [Primary Care Provider] - 5 Days (Follow up in 5-7 days if no improvement in symptoms.) Additional Instructions: Your flu test in the clinic today was positive for influenza B. Get plenty of rest. Drink plenty of fluids to avoid dehydration especially if you are running any fever. Use an over the counter decongestant such as Sudafed according to directions for any nasal congestion. Take over the counter acetaminophen (Tylenol) or ibuprofen (Advil, Motrin) according to directions as needed for pain or fever. Take Tessalon Perles 1 cap every 8 hours as needed for cough. Use salt water gargles several times a day if you have a sore throat. You may also use Chloraseptic spray or Cepacol lonzenges according to directions which contain a numbing medication and can provide some temporary relief from your sore throat. Follow up with your primary care provider in 5-7 days if symptoms persist. Seek immediate medical attention in the emergency room if you have fever greater than 100.5 F despite taking acetaminophen or ibuprofen, have chest pain , difficulty breathing, are unable to swallow, or have any worsening of symptoms. - Billing Disposition and Condition Condition: STABLE Disposition: Home
[2019-04-27 14:12] LABS: Influenza B Molecular POSITIVE (Negative)
== END 2019-04-27 14:39 | disposition home or self-care (01) ==
LOC: UCCORT 13:33
DX: J11.1 Influenza due to unidentified influenza virus with other respiratory manifestations (principal); J02.9 Acute pharyngitis, unspecified; M79.10 Myalgia, unspecified site; J34.89 Other specified disorders of nose and nasal sinuses; Z87.891 Personal history of nicotine dependence; Z88.0 Allergy status to penicillin
CPT/HCPCS: 99212; G0463

== ENCOUNTER 2019-05-08 09:35 | Emergency (ER) | payer OTHER ==
[2019-05-08 10:28] VITALS: BP 115/77
--- NOTE | 2019-05-08 10:48 | UC ---
Throat Pain/Nasal Tay HPI - HPI Summary HPI Summary: 28-year-old female presenting with sinus congestion, sinus tenderness, headache , postnasal drip is 7 days that has worsened over the past 3 days. Notes pain in upper teeth now. Patient states that she was diagnosed with the flu on . States flu symptoms improved except for congestion. Denies fever and chills. Denies n/v. Taking sudafed without relief. - History of Current Complaint Chief Complaint: UCRespiratory Stated Complaint: SINUS Hx Obtained From: Patient Hx Last Menstrual Period: 05/08/18 Onset/Duration: Gradual Onset, Lasting Weeks Severity: Moderate Pain Intensity: 7 Pain Scale Used: 0-10 Numeric - Allergies/Home Medications Allergies/Adverse Reactions: Allergies Allergy/AdvReac Type Severity Reaction Status Date / Time azithromycin Allergy Palpitation Verified 05/08/19 10:25 s Penicillins Allergy Hives Verified 05/08/19 10:25 Home Medications: Home Medications Pseudoephedrine TAB* [Sudafed TAB*] 60 mg PO Q4H PRN 05/08/19 [History Confirmed 05/08/19] PMH/Surg Hx/FS Hx/Imm Hx Previously Healthy: Yes - Surgical History Surgical History: Yes Surgery Procedure, Year, and Place: ,T&A - Family History Known Family History: Positive: Hypertension, Diabetes, Respiratory Disease - asthma Negative: Cardiac Disease - Social History Alcohol Use: Occasionally Substance Use Type: None Smoking Status (MU): Former Smoker Type: Cigarettes Amount Used/How Often: 3 cigs per day Length of Time of Smoking/Using Tobacco: 6 Years Have You Smoked in the Last Year: No When Did the Patient Quit Smoking/Using Tobacco: 11/2015 - Immunization History Most Recent Influenza Vaccination: Not the Season Most Recent Tetanus Shot: unknown Review of Systems All Other Systems Reviewed And Are Negative: Yes Constitutional: Positive: Negative. Negative: Fever, Chills ENT: Positive: Nasal Discharge - PND, Sinus Congestion, Sinus Pain/Tenderness. Negative: Sore Throat, Ear Ache Respiratory: Positive: Negative. Negative: Shortness Of Breath, Cough Cardiovascular: Positive: Negative Gastrointestinal: Positive: Negative Musculoskeletal: Positive: Negative Neurological: Positive: Headache - "sinus headache" Physical Exam Triage Information Reviewed: Yes Appearance: Well-Appearing, No Pain Distress, Well-Nourished Vital Signs: Initial Vital Signs Temp 97.3 F 05/08/19 10:23 Pulse 66 05/08/19 10:23 Resp 16 05/08/19 10:23 BP 115/77 05/08/19 10:23 Pulse Ox 100 05/08/19 10:23 Vital Signs Reviewed: Yes Eyes: Positive: Conjunctiva Clear ENT: Positive: Hearing grossly normal, Pharynx normal, Nasal congestion, Nasal drainage - PND, TMs normal, Sinus tenderness - maxillary, Uvula midline. Negative: Pharyngeal erythema, Tonsillar swelling, Tonsillar exudate Dental Exam: Normal Neck exam: Normal Neck: Positive: Supple, Nontender, No Lymphadenopathy Respiratory Exam: Normal Respiratory: Positive: Lungs clear, Normal breath sounds, No respiratory distress Cardiovascular Exam: Normal Cardiovascular: Positive: RRR Neurological: Positive: Alert Psychological: Positive: Age Appropriate Behavior Skin Exam: Normal Throat Pain/Nasal Course/Dx - Course Course Of Treatment: I treated patient with doxycycline for sinusitis given penicillin and Z-Farhan allergy. Instructed patient to continue symptomatic treatment including Flonase and ibuprofen. Instructed patient to follow up with PCP if symptoms persist. Patient voiced understanding and agreed with the treatment plan. - Differential Dx/Diagnosis Provider Diagnosis: Sinusitis, acute Discharge ED - Sign-Out/Discharge Documenting (check all that apply): Patient Departure All imaging exams completed and their final reports reviewed: No Studies - Discharge Plan Condition: Stable Disposition: HOME Prescriptions: DOXYcycline CAP(*) [DOXYcycline 100MG CAP(*)] 100 mg PO BID #10 cap Fluticasone NASAL SPRAY 50MCG* [Flonase NASAL SPRAY 50MCG*] 2 spray BOTH NARES DAILY PRN #1 btl PRN Reason: Congestion Patient Education Materials: Rhinosinusitis (ED) Referrals: Jaqueline Campbell [Primary Care Provider] - If Needed Additional Instructions: As discussed, take Doxycycline for treatment of your sinusitis. You may also use Flonase for symptomatic relief. You may continue with ibuprofen as directed for pain relief. Follow up with your primary care provider if symptoms do not resolve. - Billing Disposition and Condition Condition: STABLE Disposition: Home
== END 2019-05-08 11:05 | disposition home or self-care (01) ==
LOC: UCCORT 09:35
DX: J01.90 Acute sinusitis, unspecified (principal); Z87.891 Personal history of nicotine dependence; Z88.1 Allergy status to other antibiotic agents; Z88.0 Allergy status to penicillin
CPT/HCPCS: 99212; G0463